=== PATIENT | male | born 2000 | race Two or more races ===

== ENCOUNTER 2024-07-01 11:28 | Emergency (ER) | payer OTHER ==
[~2024-07-01] VITALS: Ht 175.3 cm; Wt 64.8 kg
[2024-07-01 12:38] VITALS: BP 129/71; PULSE 66; RESP 18; TEMP 98.5; O2SAT 98
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
[2024-07-01] MEDS ORDERED: CEPH500C PO (13:42)
[2024-07-01] MEDS ORDERED: NAPR-746 PO (13:42)
[2024-07-01] MEDS: TETANUS-DIPTH-ACEL PERTUSSIS 0.5ML SYR Tdap IM ONE (13:49)
== END 2024-07-01 13:51 | disposition home or self-care (01) ==
LOC: ER 11:30
DX: T25.212A Burn of second degree of left ankle, initial encounter (principal); X08.8XXA Exposure to other specified smoke, fire and flames, initial encounter; Y93.89 Activity, other specified; Y92.89 Other specified places as the place of occurrence of the external cause; Y99.8 Other external cause status
CPT/HCPCS: 10140; 90471; 90715

== ENCOUNTER 2024-07-02 14:17 | Emergency (ER) | payer OTHER ==
[~2024-07-02] VITALS: Ht 175.3 cm; Wt 66.0 kg
[~2024-07-02 14:17] MED LIST: CEPH500C PO; NAPR-746 PO
[2024-07-02 17:17] VITALS: BP 137/85; PULSE 89; RESP 20; TEMP 98.6; O2SAT 99
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
== END 2024-07-02 17:48 | disposition home or self-care (01) ==
LOC: ER 14:24
DX: T25.212D Burn of second degree of left ankle, subsequent encounter (principal); T31.0 Burns involving less than 10% of body surface; X11.8XXD Contact with other hot tap-water, subsequent encounter